=== PATIENT | female | born 1980 | race Caucasian/White ===

== ENCOUNTER 2020-08-30 00:49 | Inpatient (IN) | payer BC, OTHER ==
[2020-08-30] MEDS ORDERED: Famotidine/PF 20 mg/2ml Vial SLOW IVP PRN (01:11)
[2020-08-30] MEDS ORDERED: Ondansetron PF 4 MG/2 ML Vial IVP PRN ×2 (01:11→06:30)
[2020-08-30] MEDS ORDERED: hydrALAZINE 20 MG/ML VIAL SLOW IVP PRN ×2 (01:11→01:43)
[2020-08-30] MEDS ORDERED: Bicitra 30 ML UDCUP PO PRN (01:11)
[2020-08-30] MEDS ORDERED: Promethazine HCl 25 MG/ML VIAL IM PRN ×3 (01:11→02:54)
[2020-08-30] MEDS ORDERED: Lactated Ringer's 1,000 ML IV SCH (01:15)
[2020-08-30 01:31] LABS: Hemoglobin 10.3 g/dL (12.0-15.5); Mean Corpuscular HGB CONC 31.8 g/dL (32.0-36.0); Mean Corpuscular Hemoglobin 26.9 pg (27.0-33.0); Mean Corpuscular Volume 84.6 fl (81.6-98.3); Mean Platelet Volume 12.1 fl (7.4-10.4); Platelet Count 231 10x3/uL (150-450); RBC Distribution Width 16.5 % (11.5-14.5); Red Blood Cell (RBC) Count 3.83 10x6/uL (3.90-5.03); White Blood Cell (WBC) Count 12.7 10x3/uL (3.5-10.5)
[2020-08-30 01:33] VITALS: BMI 35.7
[2020-08-30] MEDS ORDERED: CEFAZOLIN 1 GM VIAL ONE (01:38)
[2020-08-30] MEDS ORDERED: Acetaminophen 325 MG TAB PO PRN (01:43)
[2020-08-30] MEDS ORDERED: Bisacodyl 10 MG SUPP PR PRN (01:43)
[2020-08-30] MEDS ORDERED: Simethicone Chewable 80 MG TAB PO PRN (01:43)
[2020-08-30] MEDS ORDERED: HYDROcodone/Acetaminophen 5/325 mg Tablet PO PRN ×2 (01:43)
[2020-08-30] MEDS ORDERED: Misoprostol 200 MCG TAB PR PRN (01:43)
[2020-08-30] MEDS ORDERED: diphenhydrAMINE 25 MG CAP PO PRN (01:43)
[2020-08-30] MEDS ORDERED: Lanolin Ointment 7 GM TUBE TOP PRN (01:43)
[2020-08-30] MEDS ORDERED: NS / Oxytocin 40 units/1000ml 1,000 ML IV SCH (01:45)
[2020-08-30] MEDS ORDERED: Azithromycin 500 MG in Sodium Chloride 0.9% 250 ML 250 ML IVPB SCH (01:45)
[2020-08-30] MEDS ORDERED: CEFAZOLIN 2 GM in Premix Bag 1 BAG IVPB SCH (01:45)
[2020-08-30] MEDS ORDERED: Oxytocin 10 UNITS/ML VIAL ONE (01:51)
[2020-08-30] MEDS ORDERED: Ondansetron PF 4 MG/2 ML Vial ONE (01:51)
[2020-08-30] MEDS ORDERED: Morphine PF 10 MG/10 ML VIAL ONE (01:51)
[2020-08-30] MEDS ORDERED: Dexamethasone 4 mg/ml Vial ONE (01:51)
[2020-08-30] MEDS ORDERED: PHENYLEPHRINE-NS 100 MCG/ML 10 ML SYRINGE ONE (01:52)
[2020-08-30] MEDS ORDERED: ePHEDrine Sulfate 50 MG/10 ML VIAL ONE (01:52)
[2020-08-30] MEDS ORDERED: Carboprost 250 MCG/ML AMP ONE (01:53)
[2020-08-30] MEDS ORDERED: Methylergonovine 0.2 MG/ML VIAL ONE (01:53)
[2020-08-30 02:08] LABS: Hep B Surf Ag Non-Reactive S/CO (NonReactive); Syphilis Antibody Nonreactive (Nonreactive); Syphilis Antibody Index 0.04 S/CO (<1.00 Non-Reactive)
[2020-08-30 02:15] LABS: HBSAg Index 0.15 S/CO (0-0.99)
[2020-08-30] MEDS ORDERED: Ketorolac Tromethamine 30 MG/ML VIAL ONE (02:37)
[2020-08-30] MEDS ORDERED: Phenylephrine 10 MG/ML VIAL ONE (02:37)
[2020-08-30 02:38] LABS: Notified Whom: RN; RapidComm Collect By RN
[2020-08-30 02:39] LABS: Notified Whom: RN; RapidComm Collect By RN; pH (Cord, venous) 7.207 (7.250-7.350)
[2020-08-30] MEDS ORDERED: Ondansetron HCl/PF 4 MG/2 ML Vial IVP PRN (02:53)
[2020-08-30] MEDS ORDERED: Promethazine HCl 25 MG/ML VIAL SLOW IVP PRN (02:53)
[2020-08-30] MEDS ORDERED: Naloxone HCl 0.4 mg/ml Vial IVP PRN ×2 (02:54)
[2020-08-30] MEDS ORDERED: diphenhydrAMINE 50 MG/ML VIAL IVP PRN (02:54)
[2020-08-30] MEDS ORDERED: Promethazine HCl 25 MG SUPP PR PRN (02:54)
[2020-08-30] MEDS ORDERED: Naloxone HCl 0.4 mg/ml Vial IV PRN (02:54)
[2020-08-30] MEDS ORDERED: Communication Order-Pharmacy FS SCH (03:00)
[2020-08-30] MEDS ORDERED: Ibuprofen 800 MG TAB PO SCH (06:00)
[2020-08-30] MEDS ORDERED: Hydrocerin (Eucerin) Cream 120 gm Jar TOP PRN (06:30)
[2020-08-30] MEDS: Ketorolac Tromethamine 30 MG/ML VIAL IVP PRN ×3 (06:39→19:02)
[2020-08-30] MEDS ORDERED: NS w/ Oxytocin 30 units 500 ML ONE (07:32)
[2020-08-30] MEDS: Docusate Calcium (SURFAK) 240 MG CAP PO SCH ×2 (08:06→22:24)
[2020-08-30] MEDS ORDERED: Adacel (T-DAP) 0.5 ML SYRINGE IM ONE (09:00)
[2020-08-30 12:53] LABS: SARS-CoV-2 PCR by NAA Not Detected (NotDetected)
[2020-08-30] MEDS: HYDROcodone/Acetaminophen 5/325 mg Tablet PO PRN (22:22)
[2020-08-31] MEDS: Ibuprofen 800 MG TAB PO SCH ×3 (06:09→20:07)
[2020-08-31 06:43] LABS: Hemoglobin 8.5 g/dL (12.0-15.5); Mean Corpuscular Hemoglobin 27.2 pg (27.0-33.0); Platelet Count 179 10x3/uL (150-450); RBC Distribution Width 16.8 % (11.5-14.5); Red Blood Cell (RBC) Count 3.13 10x6/uL (3.90-5.03); White Blood Cell (WBC) Count 12.3 10x3/uL (3.5-10.5)
[2020-08-31] MEDS: HYDROcodone/Acetaminophen 5/325 mg Tablet PO PRN ×3 (08:35→20:07)
[2020-08-31] MEDS: Docusate Calcium (SURFAK) 240 MG CAP PO SCH ×2 (08:35→20:07)
[2020-08-31] MEDS ORDERED: Ibuprofen 800 MG TAB PO SCH (14:00)
[2020-09-01] MEDS: HYDROcodone/Acetaminophen 5/325 mg Tablet PO PRN ×4 (00:12→13:38)
[2020-09-01] MEDS: Ibuprofen 800 MG TAB PO SCH ×2 (05:07→13:39)
[2020-09-01 07:45] VITALS: BP 115/64; TEMP 98
[2020-09-01] MEDS: Docusate Calcium (SURFAK) 240 MG CAP PO SCH (09:15)
== END 2020-09-01 14:29 | disposition home or self-care (01) | DRG 788 ==
LOC: CSHLD/OP 00:49 → CSHLD 01:16 → CSHPP 05:42
PROVIDERS: ADMIT Obstetrics & Gynecology; ATTEND Obstetrics & Gynecology
PROC: 10D00Z1 Extraction of Products of Conception, Low, Open Approach (ICD-10-PCS; principal; 2020-08-30)
DX: O34.211 Maternal care for low transverse scar from previous cesarean delivery (principal); Z20.822 Contact with and (suspected) exposure to COVID-19; O32.8XX0 Maternal care for other malpresentation of fetus, not applicable or unspecified; O90.81 Anemia of the puerperium; D64.9 Anemia, unspecified; Z3A.38 38 weeks gestation of pregnancy; Z37.0 Single live birth
CPT/HCPCS: 36415; 51702; 82805; 85027; 85460; 85461; 86780; 86850; 86900; 86901; 87340; 87635; 90384; 96372; 99285; J0456; J0690; J1100; J1885; J2270; J2370; J2405; J2590; J7050; U0003; U0005